=== PATIENT | male | born 1980 | race Caucasian/White ===

== ENCOUNTER 2017-06-22 21:19 | Emergency (ER) | payer OTHER ==
[~2017-06-22] VITALS: Ht 170.2 cm; Wt 141.5 kg
[2017-06-22] MEDS ORDERED: VENTOLIN HFA18 GM INH (21:44)
[2017-06-22] MEDS ORDERED: LISINOPRIL10 MG PO (21:45)
[2017-06-22] MEDS ORDERED: OMEPRAZOLE20 MG PO (21:45)
[2017-06-22] MEDS ORDERED: METFORMIN HCL500 MG PO ×2 (21:46→23:29)
[2017-06-22] MEDS ORDERED: HYDROCHLOROTHIA25 MG PO (21:46)
== END 2017-06-23 00:18 | disposition home or self-care (01) ==
LOC: ED 21:19
DX: K52.9 Noninfective gastroenteritis and colitis, unspecified (principal); F17.200 Nicotine dependence, unspecified, uncomplicated; I10 Essential (primary) hypertension; E11.9 Type 2 diabetes mellitus without complications; E66.9 Obesity, unspecified; K21.9 Gastro-esophageal reflux disease without esophagitis; Z79.899 Other long term (current) drug therapy; Z79.84 Long term (current) use of oral hypoglycemic drugs
CPT/HCPCS: 80053; 81001; 85025; 96374; 96375; 99283; J2270; J2405; J7030